=== PATIENT | male | born 1990 | race Caucasian/White ===

== ENCOUNTER 2017-03-10 13:21 | Emergency (ER) | payer BC ==
[2017-03-10 14:12] VITALS: TEMP 98.2
--- NOTE | 2017-03-10 15:25 | ED.PDOC ---
History of Present Illness - General Chief Complaint: Bite: Animal/Insect/Human Stated Complaint: Spider bite Time Seen by Provider: 03/10/17 13:59 Source: patient - History of Present Illness Initial Comments: Catrachito Byrd 26 y/o male stated that he noticed small red painful swelling on his right foot 4 days ago and gradually got worse and more pain Timing/Duration: other - 4 dyas ago Severity: moderate Location: feet - right Improving Factors: nothing, eating Associated Symptoms: swelling/mass/lumps - right foot Allergies/Adverse Reactions: Allergies NO KNOWN ALLERGY Allergy (Verified 02/04/16 10:52) Home Medications: Ambulatory Orders Clindamycin HCl 300 mg PO BID #14 cap 03/10/17 Review of Systems - Review of Systems Constitutional: States: no symptoms reported EENTM: States: no symptoms reported Respiratory: States: no symptoms reported Cardiology: States: no symptoms reported Neurological: States: see HPI All other Systems: Reviewed and Negative, No Change from Baseline Past Medical History (General) - Patient Medical History Hx Cardiac Disorders: Yes - Heart Murmur Surgical History: other - Vaccination History Hx Tetanus, Diphtheria Vaccination: No Hx Influenza Vaccination: No - Social History Hx Tobacco Use: Yes Feels Threatened In Home Enviroment: No Feels Threatened In a Relationship: No - Female History Patient is a Female of Child Bearing Age (10 -59 yrs old): No - Triage Comment ED Triage Comment: Pt has red, purplish wound on medial R foot with foul odor, that began 4 days ago Family Medical History - Family History Father Family History: Unknown Living Status: Unknown Hx Family Diabetes: Yes - mom Physical Exam - Physical Exam General Appearance: Alert, Comfortable, No apparent distress Eyes, Ears, Nose, Throat Exam: normal ENT inspection Neck: non-tender, full range of motion, supple Cardiovascular/Chest: normal peripheral pulses, regular rate, rhythm, no edema, no murmur Respiratory: chest non-tender, lungs clear Gastrointestinal/Abdominal: normal bowel sounds, non tender, soft Back Exam: no CVA tenderness Extremity: normal range of motion, non-tender, no calf tenderness Neurologic: no motor/sensory deficits, alert, oriented x 3, abnormal gait Skin Exam: warm/dry, normal color Skin Problem Location: lower extremities - right foot Skin Character: abscess, erythema, tenderness, warm Lymphatic: no adenopathy Progress - Progress Progress: 03/10/17 15:32 Last Vital Signs Temp 98.2 F 03/10/17 14:09 Pulse Resp BP Pulse Ox Procedures - Incision and Drainage #1 Site: right foot Procedure and Prep: betadine prep, sterile drapes applied, sterile dressings applied, gauze wick placed, wound culture collected, pus drained - 0.5 cc Blade Size: 11 Departure - Departure Clinical Impression: Skin abscess Qualifiers: Site of cutaneous abscess: extremity Site of cutaneous abscess of extremity: foot Laterality: right Qualified Code(s): L02.611 - Cutaneous abscess of right foot Time of Disposition: 16:22 Disposition: Discharge to Home or Self Care Condition: Good Departure Forms: ED Discharge - Pt. Copy, Patient Portal Self Enrollment Instructions: DI for Skin Abscess, DI for Incision and Drainage of a Skin Abscess Referrals: Nayan Lim MD [Primary Care Provider] - 1-2 Weeks Prescriptions: Clindamycin HCl 300 mg PO BID #14 cap Home Medications: Ambulatory Orders Clindamycin HCl 300 mg PO BID #14 cap 03/10/17 Additional Instructions: Removal of drain 03/12/2017 to be done by patient;May take ALEVE (otc) 1-2 tablets am /pm for pain as needed;Return to ER as needed
[2017-03-10] MEDS ORDERED: CLINDAMYCIN HCL CAP 150 MG CAP PO ONE (15:33)
[2017-03-10] MEDS ORDERED: CLINDAMYCIN PHOSPHATE 150 MG/ML VIAL IM ONE (15:33)
[2017-03-10] MEDS ORDERED: TETANUS,DIPHTHERIA,PERTUSSIS 1 EA SYG IM ONE (15:33)
--- NOTE | 2017-03-10 15:55 | RAD ---
EXAM DESCRIPTION: Foot,Right 3 Views CLINICAL HISTORY: 26 years Male, pain/swelling COMPARISON: None. TECHNIQUE: 3 views FINDINGS: No fractures. No osseous or articular abnormalities. Soft tissues are unremarkable. IMPRESSION: No fractures Electronically signed by: Nelson Hook 03/10/2017 3:54 PM [facility]
[2017-03-10] MEDS ORDERED: LIDOCAINE 1% W/ EPINEPHRINE 20 ML VIAL INJ ONE (15:58)
[2017-03-10] MEDS ORDERED: HYDROcodone 10MG/APAP 325MG 1 EA TAB PO ONE (16:20)
[2017-03-10 17:09] VITALS: BP 136/72; O2SAT 99
== END 2017-03-10 16:48 | disposition home or self-care (01) ==
LOC: ER 13:21
DX: L02.611 Cutaneous abscess of right foot (principal); R01.1 Cardiac murmur, unspecified; Z23 Encounter for immunization; Z87.891 Personal history of nicotine dependence
CPT/HCPCS: 73630; 87070; 90471; 90715; J3490